=== PATIENT | female | born 1950 | race Caucasian/White ===

== ENCOUNTER 2017-09-21 15:25 | Emergency (ER) | payer BC, MEDICARE, OTHER ==
[2017-09-21] MEDS ORDERED: Ketorolac 30 MG/ML SDV IM ONE (17:14)
[2017-09-21] MEDS ORDERED: Ketorolac 30 MG/ML SDV ONE (17:27)
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
--- NOTE | 2017-09-22 08:58 | CR ---
The left clavicle appears somewhat shortened compared to most recent examination. Correlate for prior surgery or remote trauma. This is new compared to prior. Degenerative changes glenohumeral joint. No fracture of the humeral head. 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 This is new compared to prior.
== END 2017-09-21 18:18 | disposition home or self-care (01) ==
LOC: JP.ED 15:25
DX: S43.422A Sprain of left rotator cuff capsule, initial encounter (principal); M62.838 Other muscle spasm; I10 Essential (primary) hypertension; E78.00 Pure hypercholesterolemia, unspecified; E03.9 Hypothyroidism, unspecified; Z88.0 Allergy status to penicillin; Z88.2 Allergy status to sulfonamides; Z79.899 Other long term (current) drug therapy; Z96.619 Presence of unspecified artificial shoulder joint; V43.52XA Car driver injured in collision with other type car in traffic accident, initial encounter
CPT/HCPCS: 70450; 72125; 73030-26-LT; 73030-LT; 96372; 99284-25; J1885

== ENCOUNTER 2019-11-26 08:35 | Emergency (ER) | payer BC, MEDICARE, OTHER ==
--- NOTE | 2019-11-26 09:32 | EDM.PDOC ---
ED HPI GENERAL MEDICAL PROBLEM - General Chief Complaint: Gastrointestinal Problem Stated Complaint: CONSTIPATED Time Seen by Provider: 11/26/19 08:45 Source of Information: Reports: Patient - History of Present Illness INITIAL COMMENTS - FREE TEXT/NARRATIVE: This is a 68-year-old female with history of chronic pain on narcotic medications who presents with concerns of constipation. She reports that her symptoms started last week, approximately 5 days ago. During this time she went off of her usual stool softener and MiraLAX for couple days. She has not been taking her Percocets however. She has some dairy in her diet. She reports a history of constipation but never this severe. She is having intermittent diffuse crampy abdominal pain as well. She has had several watery stools, one formed small BM today. - Related Data Allergies Allergy/AdvReac Type Severity Reaction Status Date / Time Penicillins Allergy Hives Verified 11/26/19 08:50 Sulfa (Sulfonamide Allergy Rash Verified 11/26/19 08:50 Antibiotics) Home Meds: Home Meds Levothyroxine Sodium [Synthroid] 175 mcg PO DAILY 05/12/14 [History] Montelukast [Singulair] 10 mg PO BEDTIME 05/12/14 [History] Simvastatin 20 mg PO DAILY 05/12/14 [History] Albuterol Sulfate [Proair Respiclick] 1 puff INH Q4H PRN 09/09/17 [History] Fluticasone/Salmeterol [Advair 250-50 Diskus] 1 puff INH DAILY 09/09/17 [History ] amLODIPine [Norvasc] 2.5 mg PO DAILY 09/09/17 [History] methocarbamoL [Methocarbamol] 500 mg PO TID PRN 09/09/17 [History] traZODone HCl [Trazodone HCl] 75 mg PO BEDTIME 09/09/17 [History] Gabapentin [Neurontin] 900 mg PO TID 09/21/17 [History] DULoxetine [Cymbalta] 60 mg PO DAILY 11/26/19 [History] Nortriptyline 20 mg PO DAILY 11/26/19 [History] Past Medical History HEENT History: Reports: Impaired Vision Cardiovascular History: Reports: High Cholesterol, Hypertension Respiratory History: Reports: Asthma, Other (See Below) Other Respiratory History: chronic cough Gastrointestinal History: Reports: Chronic Constipation 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 Social & Family History - Tobacco Use Smoking Status *Q: Never Smoker - Caffeine Use Caffeine Use: Reports: Energy Drinks ED ROS GENERAL - Review of Systems Review Of Systems: See Below Constitutional: Reports: No Symptoms HEENT: Reports: No Symptoms Respiratory: Reports: No Symptoms Cardiovascular: Reports: No Symptoms Endocrine: Reports: No Symptoms GI/Abdominal: Reports: Abdominal Pain, Constipation : Reports: No Symptoms Musculoskeletal: Reports: No Symptoms Skin: Reports: No Symptoms Neurological: Reports: No Symptoms Psychiatric: Reports: No Symptoms Hematologic/Lymphatic: Reports: No Symptoms Immunologic: Reports: No Symptoms ED EXAM, GI/ABD - Physical Exam Exam: See Below General Appearance: Alert, No Apparent Distress Ears: Normal External Exam Nose: Normal Inspection Throat/Mouth: Normal Inspection Head: Atraumatic, Normocephalic Neck: Normal Inspection Respiratory/Chest: Lungs Clear Cardiovascular: Regular Rate, Rhythm GI/Abdominal Exam: Soft, Non-Tender, No Distention Rectal (Female) Exam: Other. No: Hemorrhoids (Watery stool around the rectum, formed but soft stool noted within rectal vault.) Extremities: Normal Inspection Neurological: Alert, Oriented Psychiatric: Normal Affect, Normal Mood Skin Exam: Warm, Dry Course - Vital Signs Last Recorded V/S: Last Vital Signs Temp 36.0 C L 11/26/19 08:53 Pulse 94 11/26/19 08:53 Resp 20 11/26/19 08:53 BP 138/59 L 11/26/19 08:53 Pulse Ox 100 11/26/19 08:53 - Re-Assessments/Exams Free Text/Narrative Re-Assessment/Exam: 68-year-old presents with concerns of constipation. On exam she has normal vitals. Benign abdominal exam. Some watery stool around the rectum but soft stool within the vault. She has a history of narcotic use, but now appropriately stopped this. She also lapsed on her typical MiraLAX and fiber supplement last week. Suspect this resulted in her symptoms today. We have discussed increasing her MiraLAX to 3 times daily until she is having regular bowel movements and continuing her stool softener. She will follow-up with her primary doctor. 11/26/19 09:38 Departure - Departure Time of Disposition: 09:30 Disposition: Home, Self-Care 01 Clinical Impression: Constipation Qualifiers: Constipation type: unspecified constipation type Qualified Code(s): K59.00 - Constipation, unspecified - Discharge Information *PRESCRIPTION DRUG MONITORING PROGRAM REVIEWED*: No *COPY OF PRESCRIPTION DRUG MONITORING REPORT IN PATIENT RUSSELL: No Instructions: High-Fiber Diet, Constipation, Adult, Diet for Irritable Bowel Syndrome Referrals: PCP,None [Primary Care Provider] - Forms: ED Department Discharge Additional Instructions: Please continue your stool softener and increase MiraLAX to 3 times daily as discussed. It is important that you take this until you are having regular soft bowel movements. Avoid narcotic medication such as Percocet. Eat a high-fiber diet and avoid dairy. Sepsis Event Note - Evaluation Sepsis Screening Result: No Definite Risk - Focused Exam Vital Signs: Vital Signs Temp Pulse Resp BP Pulse Ox 11/26/19 08:53 36.0 C L 94 20 138/59 L 100 Date Exam was Performed: 11/26/19 Time Exam was Performed: 09:36
== END 2019-11-26 09:48 | disposition home or self-care (01) ==
LOC: JP.ED 08:35
CPT/HCPCS: 99283

== ENCOUNTER 2021-02-02 14:03 | Emergency (ER) | payer OTHER, MEDICARE ==
--- NOTE | 2021-02-02 15:31 | EDM.PDOC ---
ED HPI GENERAL MEDICAL PROBLEM - General Chief Complaint: Head Injury Stated Complaint: BLACK EYES FALL AT WORK 01/27/21 Time Seen by Provider: 02/02/21 15:24 Source of Information: Reports: Patient ( ), Family - History of Present Illness INITIAL COMMENTS - FREE TEXT/NARRATIVE: Yuki is a 70 year old female whom presents to ER for evaluation for huong- orbital bruising after head injury which occurred at work on Wednesday, last week. Patient had a swelling (contusion/hematoma) initially which has decreased but bruising has pooled around left huong-orbital area and right medial huong-orbital area. Patient has slight headache and feels off the last week but has continued to work but slows down and sits for a little while until symptoms improving. Patient has is concerned about intra-cranial concerns regarding fall/head injury. - Related Data Allergies Allergy/AdvReac Type Severity Reaction Status Date / Time Penicillins Allergy Hives Verified 02/02/21 15:36 Sulfa (Sulfonamide Allergy Rash Verified 02/02/21 15:36 Antibiotics) Home Meds: Home Meds Levothyroxine Sodium [Synthroid] 175 mcg PO DAILY 05/12/14 [History] Montelukast [Singulair] 10 mg PO BEDTIME 05/12/14 [History] Simvastatin 20 mg PO DAILY 05/12/14 [History] Albuterol Sulfate [Proair Respiclick] 1 puff INH Q4H PRN 09/09/17 [History] Fluticasone Propion/Salmeterol [Advair 250-50 Diskus] 1 puff INH DAILY 09/09/17 [History] amLODIPine [Norvasc] 2.5 mg PO DAILY 09/09/17 [History] traZODone HCl [Trazodone HCl] 75 mg PO BEDTIME 09/09/17 [History] Gabapentin [Neurontin] 900 mg PO TID 09/21/17 [History] DULoxetine [Cymbalta] 60 mg PO DAILY 11/26/19 [History] Nortriptyline 20 mg PO DAILY 11/26/19 [History] oxyCODONE HCl/Acetaminophen [Oxycodon-Acetaminophen 2.5-325] 1 tab PO Q4HR PRN 11/26/19 [History] Past Medical History HEENT History: Reports: Impaired Vision Cardiovascular History: Reports: High Cholesterol, Hypertension Respiratory History: Reports: Asthma, Other (See Below) Other Respiratory History: chronic cough Gastrointestinal History: 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 Social & Family History - Caffeine Use Caffeine Use: Reports: Energy Drinks ED ROS GENERAL - Review of Systems Review Of Systems: Comprehensive ROS is negative, except as noted in HPI. ED EXAM, HEAD INJURY - Physical Exam Exam: See Below General Appearance: Alert, WD/WN, No Apparent Distress Head: Normocephalic, Scalp Swelling, Scalp Abrasions (left upper forehead abrasion ), Facial Ecchymosis (left forehead and bilateral Left>Right huong- orbital area. ), Raccoon Eyes (due to pooling bruising left huong-orbital and right medial huong-orbital area. ) Nexus Criteria: No: Posterior, Midline Cervical Tenderness, Evidence of Intoxication, Altered Level of Consciousness, Focal Neurological Deficit, Painful Distraction Injuries Eyes: Bilateral Eye: EOMI, Normal Inspection Ears: Hearing Grossly Normal Nose: Normal Inspection Throat/Mouth: Normal Voice, No Airway Compromise Neck: Non-Tender, Full Range of Motion Respiratory: No Respiratory Distress, Normal Breath Sounds Cardiovascular: Normal Peripheral Pulses, Regular Rate, Rhythm Extremities: Normal Inspection, Normal Range of Motion Neurologic: No Motor/Sensory Deficits, Alert, Normal Mood/Affect, Oriented x 3 Skin: Normal Color, Warm/Dry, Other (Facial bruising noted as described above) Course - Vital Signs Last Recorded V/S: Last Vital Signs Temp 36.4 C 02/02/21 15:45 Pulse 69 02/02/21 15:45 Resp 16 02/02/21 15:45 BP 122/52 L 02/02/21 15:45 Pulse Ox 93 L 02/02/21 15:45 - Radiology Interpretation Free Text/Narrative:: CT Head: Left soft tissue hematoma noted with no signs of intracranial bleeding or trauma sequelae. Images read and acted on by me during ER evaluation. Radiology report pending at time of documentation. Delay in radiology report, multiple phone calls and requests made. results found on CRL system at time of discharge. No acute concerns note by radiologist, report in [facility] pending. Departure - Departure Time of Disposition: 17:34 Disposition: Home, Self-Care 01 Clinical Impression: Concussion with no loss of consciousness, Hematoma, Traumatic ecchymosis of face - Discharge Information Instructions: Head Injury, Adult, Facial or Scalp Contusion, Concussion, Adult, Preventing Traumatic Brain Injury, Adult, Supporting Someone With Traumatic Brain Injury, Returning to Sports and Activities After a Concussion, Adult Referrals: PCP,None [Primary Care Provider] - Forms: ED Department Discharge Additional Instructions: 1. Continue decreased activity when symptoms of concussion occur. 2. Tylenol 500-1000mg every 6-8 hours for headache pain if needed. 3. Follow concussion, headache, head injury, hematoma and bruising information given. 4. Contact PCP for recheck later this week or next to follow-up after ER visit. Sepsis Event Note (ED) - Focused Exam Vital Signs: Vital Signs Temp Pulse Resp BP Pulse Ox 02/02/21 15:45 36.4 C 69 16 122/52 L 93 L 02/02/21 15:13 36.4 C 69 16 122/52 L 93 L
--- NOTE | 2021-02-02 17:33 | CRLCT ---
For Patients: As a result of the Century Cures Act, medical imaging exams and procedure reports are released immediately into your electronic medical record. You may view this report before your referring provider. If you have questions, please contact your health care provider. Indication: Head injury. Post concussive syndrome. Technique: Multiple contiguous axial images were obtained from the skullbase to the vertex without intravenous contrast enhancement. Please note that all CT scans at this facility use dose modulation, iterative reconstruction, and/or weight-based dosing when appropriate to reduce radiation dose to as low as reasonably achievable. Comparison: September 21, 2017. Findings: Ventricles are symmetric and normal in size and morphology. The basal cisterns are widely patent. No intra-axial or extra-axial hemorrhage is identified. No mass, mass effect or midline shift is seen. A small hematomas identified superior to the left orbit. No bony abnormality is identified in this region. The bony calvarium is intact. Minimal mucosal thickening of the ethmoid air cells is identified. The remainder the visualized paranasal sinuses are clear. The mastoid air cells are clear. Impression: Minimal mucosal thickening of the ethmoid air cells. No acute intracranial process Please note that all CT scans at this facility use dose modulation, iterative reconstruction, and/or weight-based dosing when appropriate to reduce radiation dose to as low as reasonably achievable. Dictated by Chata Moyer MD @ 02/02/2021 5:32:[address] Chata Moyer @ Feb 02 2021 5:32PM
== END 2021-02-02 18:05 | disposition home or self-care (01) ==
LOC: JP.ED 14:03
DX: S00.83XA Contusion of other part of head, initial encounter (principal); E78.00 Pure hypercholesterolemia, unspecified; I10 Essential (primary) hypertension; E03.9 Hypothyroidism, unspecified; Z88.0 Allergy status to penicillin; Z88.2 Allergy status to sulfonamides; W22.8XXA Striking against or struck by other objects, initial encounter; Y99.0 Civilian activity done for income or pay
CPT/HCPCS: 70450; 99283; 99283-25

== ENCOUNTER 2022-03-02 14:47 | Emergency (ER) | payer MEDICARE ==
[2022-03-02] MEDS ORDERED: HYDROmorphone 1 MG/ML Syringe IM ONE (17:01)
== END 2022-03-02 17:37 | disposition home or self-care (01) ==
LOC: JP.ED 14:47
DX: L03.011 Cellulitis of right finger (principal); E78.00 Pure hypercholesterolemia, unspecified; I10 Essential (primary) hypertension; E03.9 Hypothyroidism, unspecified; Z88.2 Allergy status to sulfonamides; Z88.0 Allergy status to penicillin; Z79.899 Other long term (current) drug therapy
CPT/HCPCS: 73140; 96372; 99283; J1170

== ENCOUNTER 2022-03-04 08:21 | Day surgery (SDC) | payer MEDICARE ==
[~2022-03-04 08:21] MED LIST: Midazolam 1 MG/ML 2 ML SDV ONE; Propofol 200 MG/20 ML SDV ONE; fentaNYL 100 MCG/2 ML SDV ONE
[2022-03-04 09:04] LABS: ESTIMATED GFR 78 mL/min (>60)
[2022-03-04] MEDS ORDERED: Lactated Ringers 1,000 ML IV SCH (09:30)
[2022-03-04] MEDS ORDERED: Nozin Nasal Sanitizer NASBOTH ONE (09:30)
[2022-03-04] MEDS ORDERED: Bupivacaine 0.5% 30 ML SDV ONE (10:10)
== END 2022-03-04 12:30 | disposition home or self-care (01) ==
LOC: JP.SDS 08:21
PROVIDERS: ATTEND Specialist
DX: L02.511 Cutaneous abscess of right hand (principal); Z47.2 Encounter for removal of internal fixation device; I10 Essential (primary) hypertension; E03.9 Hypothyroidism, unspecified; J45.909 Unspecified asthma, uncomplicated; G89.29 Other chronic pain; E78.5 Hyperlipidemia, unspecified; Z88.0 Allergy status to penicillin; Z88.2 Allergy status to sulfonamides; Z98.890 Other specified postprocedural states
CPT/HCPCS: 26011; 36415; 80053; 85027; 87070; 87075; 87077; 87205; A9270; J0690; J2250; J2704; J3010; J3490; J7120

== ENCOUNTER 2022-03-17 13:17 | Emergency (ER) | payer OTHER, MEDICARE ==
[2022-03-17] MEDS: Lidocaine 1% with EPINEPHrine 1:100,000 50 ML MDV INFILT ONE (13:46)
[2022-03-17] MEDS: Diphtheria,Pertussis(Acell),Tetanus Vaccine 0.5 ML Syringe IM ONE (14:12)
== END 2022-03-17 15:04 | disposition home or self-care (01) ==
LOC: JP.ED 13:17
DX: S52.592A Other fractures of lower end of left radius, initial encounter for closed fracture (principal); S01.01XA Laceration without foreign body of scalp, initial encounter; E78.00 Pure hypercholesterolemia, unspecified; I10 Essential (primary) hypertension; E03.9 Hypothyroidism, unspecified; K21.9 Gastro-esophageal reflux disease without esophagitis; Z88.0 Allergy status to penicillin; Z88.2 Allergy status to sulfonamides; Z79.899 Other long term (current) drug therapy; Z23 Encounter for immunization; W22.09XA Striking against other stationary object, initial encounter
CPT/HCPCS: 12002; 73110-26-LT; 73110-LT; 90471; 90715; 99283-25